=== PATIENT | male | born 1985 | race Caucasian/White ===

== ENCOUNTER 2020-10-05 16:47 | Emergency (ER) | payer OTHER, SELFPAY ==
--- NOTE | 2020-10-05 16:45 | DI.CT_ITS ---
EXAM: CT HEAD CERVICAL SPINE WO CLINICAL HISTORY: head injury. TECHNIQUE: Imaging Protocol: Axial computed tomography images with coronal and sagittal reformatted images were created and reviewed COMPARISON: No exams were available for comparison FINDINGS: BRAIN: There are no skull fractures nor fluid in the visualized paranasal sinuses. Mild mucosal thickening is noted in the right maxillary sinus as well as ethmoid air cells bilaterally and the frontoethmoida l recesses. There is no evidence of intracranial hemorrhage, mass effect, or shift of midline structures. There are no extra-axial fluid collections. The ventricles are not enlarged or shifted and there is no blo od within the ventricular system nor within the basal cisterns. CERVICAL SPINE: There is no evidence of fracture nor listhesis. No significant prevertebral soft tissue swelling. N o facet malalignment evident. Chronic degenerative disc disease at C5-6 level is noted with Luschka joint osteophytes at this level and smaller Luschka joint osteophytes at C6-7 level and milder disc s pace narrowing at C6-7 level. No significant osseous lesions evident. IMPRESSION: No acute intracranial findings on this noninfused CT scan of the brain. No evidence of cervical spine fracture, malalignment, nor acute compromise of the cervical spinal can al. Degenerative disc disease of chronic nature C5-6 noted. RADIATION DOSE DELIVERED: 1,509.56mGy.cm Total DLP DATA REPOSITORY: All CT scans at this facility are submitted to the National Radiology Data Registry (NRDR) Dose Index Registry (DIR) with the [employer] ([employer]). RADIATION OPTIMIZATION: All CT scans at this facility use at least one of these dose optimization te chniques: automated exposure control; mA and/or kV adjustment per patient size (includes targeted exa ms where dose is matched to clinical indication); or iterative reconstruction.
--- NOTE | 2020-10-05 16:49 | W.ED.GENAD ---
Discharge Plan Disposition Patient Disposition: HOME Condition: Stable Discharge Details Clinical Impression: Head injury Primary Care Provider: Tomás Santana ED Provider: Stephenie Bell Home Meds and New Rx's Prescriptions: No Action No Known Home Meds RF: 0 Discharge Instructions Instructions: Head Injury (ED) Additional Instructions: can use Tylenol or ibuprofen as directed Drink at least 6 to 8 glasses of water to stay well-hydrated Return sooner for new or worsening symptoms Referrals: Practice Provider [Provider Group] (As needed) Discharge Data Discharge Date/Time-TO BE ENTERED AT DEPARTURE: 10/05/20 18:25 Medical Decision Making Patient presents after head injury no loss Of consciousness awake oriented Reports headache and head and neck pain will obtain head and neck CT which showed no acute findings. Will be discharged with conservative management with Tylenol or ibuprofen return sooner for new or worsening symptoms Medical Records Medical records reviewed: Yes I reviewed the patient's medical records. HPI General Mode of arrival: ambulatory. Date/Time Provider Initiated Documentation: 10/05/20 16:48. Limitations to Documentation: no limitations. Information obtained by: patient. HPI Narrative: [place] and a bail fell of a top row and landed on his head he denies any LOC it has knocked him to the ground. Reporting neck pain and head pain Related Data Home Medications Medication Instructions Recorded Confirmed Unknown [No Known Home Meds] 10/05/20 10/05/20 Allergies Allergy/AdvReac Type Severity Reaction Status Date / Time No Known Allergies Allergy Unverified 10/05/20 16:57 Review of Systems All systems reviewed & are unremarkable except as noted in HPI and below Constitutional Constitutional: Denies fever(s) Eyes Eyes: Denies blurry vision, Denies change in vision and Denies diplopia ENT Ears, Nose, Mouth, and Throat: Denies vertigo Cardiovascular Cardiovascular: Denies chest pain and Denies dyspnea Respiratory Respiratory: Denies dyspnea Gastrointestinal Gastrointestinal: Denies nausea and Denies vomiting Musculoskeletal Musculoskeletal: Reports back pain, Reports myalgias and Reports stiffness Integumentary/Breasts Skin/Breast: Denies sores Neurologic Neurologic: Denies confusion and Denies vertigo Psychiatric Psychiatric: Denies anxiety and Denies confusion Hematologic/Lymphatic Hematologic/Lymphatic: Denies easy bleeding and Denies easy bruising [facility] Social History Smoking/Tobacco Use Status: Never Smoking risk assessment performed?: Yes Alcohol Intake: current Drug use: Never Substance use type: does not use Current gender identity: male Do you feel safe at home: Yes Do you feel safe in your relationship?: Yes Exam Const General: cooperative, healthy appearing, comfortable, no acute distress and anxious Nutritional Appearance: average body habitus Orientation: alert, awake and oriented x3 HENMT Head: normal to inspection, normocephalic and abrasion Mouth: oral mucosae normal Chest Chest: normal inspection of the chest Resp Effort & Inspection: normal respiratory effort Auscultation: clear to auscultation bilaterally Cardio Rate: regular rate Rhythm: regular rhythm Skin Lesions: lesion noted (scab intact to top of head) Rashes: no rashes
[2020-10-05 16:54] VITALS: BP 145/87; PULSE 68; RESP 20; TEMP 36.5; O2SAT 98
[2020-10-05] MEDS: Acetaminophen 500 MG TAB 1000 MG PO (17:29)
--- NOTE | 2020-10-05 17:57 | DI.VRAD_ITS ---
PROCEDURE INFORMATION: Exam: CT Head Without Contrast Exam date and time: 10/05/2020 5:12 PM Age: 35 years old Clinical indication: Other: Head injury TECHNIQUE: Imaging protocol: Computed tomography of the head without contrast. COMPARISON: No relevant prior studies available. FINDINGS: Brain: Normal. No hemorrhage. Unremarkable white matter. No mass effect. Cerebral ventricles: No ventriculomegaly. Bones/joints: Unremarkable. No acute fracture. Paranasal sinuses: There is mild mucoperiosteal thickening of the ethmoid air cells. There is mild mucoperiosteal thickening right inferior maxillary sinus. Mastoid air cells: Visualized mastoid air cells are well aerated. Soft tissues: Unremarkable. Dental: There is some beam hardening artifact at the skull base from dental work. IMPRESSION: No evidence for acute intracranial abnormality. PROCEDURE INFORMATION: Exam: CT Cervical Spine Without Contrast Exam date and time: 10/05/2020 5:12 PM Age: 35 years old Clinical indication: Other: Head injury TECHNIQUE: Imaging protocol: Computed tomography images of the cervical spine without contrast. COMPARISON: No relevant prior studies available. FINDINGS: Bones/joints: Vertebral body height is well preserved. There is straightening of the normal cervical lordosis, nonspecific but commonly seen with underlying muscle spasm. No evidence for fracture. Discs/Spinal canal/Neural foramina: No significant disc protrusion. No severe spinal canal stenosis. No significant neural foraminal narrowing. Lungs: Lung apices are normal. Soft tissues: Unremarkable. Other findings: There is spondylosis C5-C6 with mild central stenosis. IMPRESSION: Spondylosis with mild lower cervical stenosis. Probable muscle spasm. No evidence for fracture. Dictated and Authenticated by: Edith Palacios MD. Ordering:MAC Casiano MD
--- NOTE | 2020-10-08 13:11 | NUR.NOTE ---
late entry, pt refused tetanus shot stated that he got one last year Nursing Note:
== END 2020-10-05 18:25 | disposition home or self-care (01) ==
PROVIDERS: Emergency Provider Nurse Practitioner Acute Care; PCP Family Medicine
DX: S00.01XA Abrasion of scalp, initial encounter (principal); W20.8XXA Other cause of strike by thrown, projected or falling object, initial encounter
CPT/HCPCS: 99284; 70450; 72125; 99283